=== PATIENT | female | born 1985 | race Caucasian/White ===

== ENCOUNTER → 2017-10-09 | Outpatient (CLI) | payer OTHER ==
[2017-10-09 18:24] LABS: BASOPHILS ABSOLUTE AUTO 0.04 K/mm3 (0.00-0.23); BASOPHILS PERCENT AUTO 1 % (0-2); EOSINOPHILS ABSOLUTE AUTO 0.05 K/mm3 (0.00-0.68); EOSINOPHILS PERCENT AUTO 1 % (0-6); Hematocrit 42.3 % (33.0-51.0); Hemoglobin 14.1 g/dL (11.5-16.0); IMMATURE GRAN ABSOLUTE AUTO 0.02 K/mm3 (0.00-0.10); IMMATURE GRAN PERCENT AUTO 0 % (0-1); LYMPHOCYTES PERCENT AUTO 21 % (21-46); MONOCYTES ABSOLUTE AUTO 0.52 K/mm3 (0.16-1.47); MONOCYTES PERCENT AUTO 8 % (4-13); Mean Corpuscular HGB 30.9 pg (26.0-34.0); Mean Corpuscular HGB Conc 33.3 g/dL (31.5-36.5); Mean Corpuscular Volume 93 fL (80-100); Mean Platelet Volume 11.4 fL (9.1-12.4); NEUTROPHILS ABSOLUTE AUTO 4.25 K/mm3 (1.96-9.15); NEUTROPHILS PERCENT AUTO 69 % (41-73); Platelet Count 237 K/mm3 (150-400); RDW Coefficient Variation 11.9 % (11.7-14.2); RDW Standard Deviation 41.2 fL (35.1-46.3); Red Blood Cell Count 4.57 M/mm3 (3.80-5.20); White Blood Cell Count 6.18 K/mm3 (4.00-11.30)
[2017-10-09 18:37] LABS: Free Thyroxine 0.95 ng/dL (0.70-1.60)
[2017-10-09 18:42] LABS: Alanine Aminotransfer (ALT/SGP 24 U/L (12-78); Albumin, Blood 3.9 g/dL (3.4-5.0); Albumin/Globulin Ratio 1.1 (0.8-1.8); Alk Phos 59 U/L (50-136); Anion Gap 8 mmol/L (6-16); Aspartate Aminotrans (AST/SGOT 12 U/L (12-37); Bilirubin, Total 0.8 mg/dL (0.1-1.0); Blood Urea Nitrogen 9 mg/dL (8-24); Bun/Creatinine Ratio 12.8 (12.0-20.0); CO2, Blood 27 mmol/L (21-32); Calcium, Blood 8.7 mg/dL (8.5-10.1); Chloride, Blood 103 mmol/L (98-108); Globulin, Blood 3.7 g/dL (2.2-4.0); Glomerular Filtration Rate >60 (60-); Glucose, Blood 74 mg/dL (70-99); Potassium, Blood 4.3 mmol/L (3.5-5.5); Sodium, Blood 138 mmol/L (136-145); Thyroid Stimulating Hormone 0.748 uIU/mL (0.360-4.800); Total Protein, Blood 7.6 g/dL (6.4-8.2)
== END ==
LOC: LAB 09:48
PROVIDERS: Nurse Practitioner Adult Health
DX: N92.6 Irregular menstruation, unspecified (principal); F41.8 Other specified anxiety disorders; N95.1 Menopausal and female climacteric states
CPT/HCPCS: 80053; 83001; 84439; 84443; 85025

== ENCOUNTER → 2017-11-21 | Outpatient (CLI) | payer OTHER ==
[2017-11-24 01:40] LABS: HPV Genotype 16 Detected (NOTDET); HPV Genotype 18 Not Detected (NOTDET)
[2017-12-02 12:28] LABS: HPV High Risk Other Not Detected (NOTDET)
== END ==
LOC: LAB 11:58
PROVIDERS: Registered Nurse Community Health
DX: Z12.4 Encounter for screening for malignant neoplasm of cervix (principal)
CPT/HCPCS: 87624; G0123

== ENCOUNTER → 2017-12-17 | Outpatient (CLI) | payer OTHER | LOC: PLD 15:19 → LAB SHORT 15:19 | DX: N76.0 Acute vaginitis (principal); B97.7 Papillomavirus as the cause of diseases classified elsewhere | CPT/HCPCS: 87070; 87205; 88305 ==

== ENCOUNTER 2020-02-11 08:36 | Day surgery (SDC) | payer OTHER | END 2020-02-11 22:48 | disposition home or self-care (01) | LOC: US 08:36 | DX: L72.8 Other follicular cysts of the skin and subcutaneous tissue (principal) | CPT/HCPCS: 10030; 76942 ==

== ENCOUNTER → 2020-03-29 | Outpatient (CLI) | payer OTHER ==
[2020-03-30 16:10] LABS: HPV 16 Positive (Negative); HPV 18 Negative (Negative); HPV OTHER HR TYPES Negative (Negative)
== END ==
LOC: LAB UCHC 11:02 → LAB SHORT 11:02
PROVIDERS: Registered Nurse Community Health
DX: Z12.4 Encounter for screening for malignant neoplasm of cervix (principal)
CPT/HCPCS: 87624; G0123

== ENCOUNTER → 2020-07-20 | Outpatient (CLI) | payer OTHER | LOC: LAB SHORT 14:57 → PLD 14:57 | DX: N87.0 Mild cervical dysplasia (principal) | CPT/HCPCS: 88305 ==

== ENCOUNTER → 2020-08-19 | Outpatient (CLI) | payer OTHER | END | disposition home or self-care (01) | LOC: LAB SHORT 13:34 → LAB 13:34 | DX: R87.810 Cervical high risk human papillomavirus (HPV) DNA test positive (principal) | CPT/HCPCS: 88305 ==

== ENCOUNTER → 2021-09-20 | Outpatient (CLI) | payer OTHER ==
[2021-09-22 14:08] LABS: HPV 16 Negative (Negative); HPV 18 Negative (Negative); HPV OTHER HR TYPES Negative (Negative)
== END ==
LOC: LAB SHORT 11:33
PROVIDERS: Registered Nurse Community Health
DX: Z12.4 Encounter for screening for malignant neoplasm of cervix (principal); N87.9 Dysplasia of cervix uteri, unspecified
CPT/HCPCS: 87624; G0123

== ENCOUNTER 2022-05-31 00:27 | Emergency (ER) | payer OTHER ==
[~2022-05-31] VITALS: Ht 172.7 cm; Wt 72.6 kg
[~2022-05-31 00:27] MED LIST: CEPH500 PO; Roxicodone5 MG PO
== END 2022-05-31 01:58 | disposition home or self-care (01) ==
LOC: ER 00:27
DX: S63.502A Unspecified sprain of left wrist, initial encounter (principal); W10.9XXA Fall (on) (from) unspecified stairs and steps, initial encounter
CPT/HCPCS: 73090; 99283-25; A9270

== ENCOUNTER → 2024-09-17 | Outpatient (CLI) | payer BC ==
[2024-09-17 10:43] LABS: BASOPHILS ABSOLUTE AUTO 0.05 K/mm3 (0.00-0.23); BASOPHILS PERCENT AUTO 1 % (0-2); EOSINOPHILS ABSOLUTE AUTO 0.09 K/mm3 (0.00-0.68); EOSINOPHILS PERCENT AUTO 1 % (0-6); Hematocrit 44.7 % (33.0-51.0); Hemoglobin 15.7 g/dL (11.5-16.0); IMMATURE GRAN ABSOLUTE AUTO 0.01 K/mm3 (0.00-0.10); IMMATURE GRAN PERCENT AUTO 0 % (0-1); LYMPHOCYTES ABSOLUTE AUTO 1.69 K/mm3 (0.84-5.20); LYMPHOCYTES PERCENT AUTO 24 % (21-46); MONOCYTES ABSOLUTE AUTO 0.66 K/mm3 (0.16-1.47); MONOCYTES PERCENT AUTO 10 % (4-13); Mean Corpuscular HGB 31.7 pg (26.0-34.0); Mean Corpuscular HGB Conc 35.1 g/dL (31.5-36.5); Mean Corpuscular Volume 90 fL (80-100); Mean Platelet Volume 10.3 fL (9.1-12.4); NEUTROPHILS ABSOLUTE AUTO 4.47 K/mm3 (1.96-9.15); NEUTROPHILS PERCENT AUTO 64 % (41-73); Platelet Count 219 K/mm3 (150-400); RDW Coefficient Variation 12.3 % (11.7-14.2); RDW Standard Deviation 40.1 fL (35.1-46.3); Red Blood Cell Count 4.95 M/mm3 (3.80-5.20); White Blood Cell Count 6.97 K/mm3 (4.00-11.30)
[2024-09-17 10:49] LABS: Bun/Creatinine Ratio 7.7 (12.0-20.0); Calcium, Blood 8.8 mg/dL (8.5-10.1); Creatinine, Blood 0.78 mg/dL (0.40-1.00); Potassium, Blood 3.9 mmol/L (3.5-5.5)
== END ==
LOC: LAB 10:38 → LAB SHORT 10:38
PROVIDERS: Chiropractor
DX: R10.31 Right lower quadrant pain (principal)
CPT/HCPCS: 80048; 85025